=== PATIENT | female | born 1980 | race Caucasian/White ===

== ENCOUNTER → 2018-03-17 | Outpatient (REF) ==
[~2018-03-17] MED LIST: AMOX-559 PO; AZIT-1 PO; BENZ100C4 PO; FLUT16SP19 NS; GABA-547 PO; PRED20TA6 PO; SILV20CR2 TP
[2018-03-17 08:38] LABS: LDL CHOLESTEROL 81 mg/dl
== END ==
DX: Z02.9 Encounter for administrative examinations, unspecified (principal)